=== PATIENT | female | born 1980 | race Caucasian/White ===

== ENCOUNTER 2016-09-24 10:53 | Emergency (ER) | payer OTHER, MEDICAID ==
[~2016-09-24] VITALS: Ht 162.6 cm; Wt 90.9 kg
[~2016-09-24 10:53] MED LIST: AZITHROMYCIN; CLONAZEPAM PO; KLONOPIN 1MG1 MG; KLONOPIN 1MG1 MG PO; LORTAB 10/500 51 TAB; LORTAB 5/500 501 TAB PO; MS CONTIN 115 MG/TAB PO; MS CONTIN 330 MG/TAB; NORCO 325 MG-7.1 TAB PO; PHENERGAN 25 TA25 MG PO; PRILOSEC 20MG20 MG PO; PRILOSEC10 MG PO; SAVELLA50 MG; TYLENOL 500MG500 MG PO; XANAX 0.5MG0.5 MG; ZOFRAN 4MG T4 MG/TAB PO; [UNRECOGNIZED DRUG - OTHER]; [UNRECOGNIZED DRUG - REMARK]; [UNRECOGNIZED DRUG - REMARK]
[2016-09-24 10:55] VITALS: TEMP 98
[2016-09-24] MEDS ORDERED: FENTANYL 25 MCG TD (11:02)
[2016-09-24] MEDS ORDERED: NORCO 325 MG-7.1 TAB PO (11:02)
[2016-09-24] MEDS ORDERED: MOVANTIK25 MG PO (11:09)
[2016-09-24] MEDS ORDERED: FLEXERIL 1010 MG/TAB PO (11:17)
[2016-09-24] MEDS ORDERED: DESYREL 50MG50 MG PO (11:17)
[2016-09-24] MEDS ORDERED: PRINIVIL10 MG PO (11:18)
[2016-09-24 11:30] LABS: BASO # 0.1 (0.0-0.2); BASO % 0.8 % (0.0-2.0); EOS # 0.1 (0.0-0.7); EOS % 1.9 % (0-4.0); GRAN # 4.5 (1.4-6.5); HEMATOCRIT 39.8 % (37.0-47.0); HEMOGLOBIN 13.3 g/dl (12.5-16.0); LYMPH % 27.4 % (20.0-51.0); MEAN CELL VOLUME 91 fl (80.0-100.0); MEAN CORPUSCULAR HEMOGLOBIN 30 pg (27.0-31.0); MEAN CORPUSCULAR HGB CONC 33 g/dl (33.0-37.0); MEAN PLATELET VOLUME 8.7 fl (7.4-10.4); MONO # 0.5 (0.1-0.6); MONO % 6.5 % (1.7-9.3); PLATELET COUNT 276 K/mm3 (130-400); RED BLOOD COUNT 4.38 M/mm3 (4.10-5.30); WHITE BLOOD COUNT 7.2 K/mm3 (4.8-10.8)
[2016-09-24 11:43] LABS: ADJUSTED CALCIUM 9.1 mg/dL (8.4-10.2); ALBUMIN 4.5 gm/dL (3.5-5.0); BILIRUBIN,TOTAL 0.6 mg/dL (0.0-1.0); CALCIUM 9.5 mg/dL (8.4-10.2); CREATININE, serum 0.91 mg/dL (0.52-1.25); POTASSIUM 3.9 mmol/L (3.4-5.0)
[2016-09-24] MEDS ORDERED: ULTRAM 50MG TAB50 MG PO (11:54)
[2016-09-24] MEDS ORDERED: PERCOCET 325 MG1 TA2 PO (11:54)
[2016-09-24 12:49] LABS: PH 6 (5-8); SQUAMOUS EPITHELIAL None Seen /hpf; URINE APPEARANCE Clear; URINE BACTERIA None Seen /hpf; URINE BILIRUBIN Negative (NEGATIVE); URINE BLOOD Negative (NEGATIVE); URINE COLOR Straw; URINE GLUCOSE Negative (NEGATIVE); URINE KETONE Negative (NEGATIVE); URINE RBC 0-2 /hpf; URINE UROBILINOGEN Negative (NEGATIVE); URINE WBC None Seen /hpf
[2016-09-24 13:20] VITALS: BP 120/83; PULSE 104
== END 2016-09-24 13:47 | disposition home or self-care (01) ==
LOC: COL.ER 10:53
PROVIDERS: Emergency Medicine
DX: S09.90XA Unspecified injury of head, initial encounter (principal); M54.2 Cervicalgia; R10.84 Generalized abdominal pain; M54.6 Pain in thoracic spine; M54.5 Low back pain; R10.2 Pelvic and perineal pain; V48.5XXA Car driver injured in noncollision transport accident in traffic accident, initial encounter; Y92.410 Unspecified street and highway as the place of occurrence of the external cause
CPT/HCPCS: J1170; J2405; Q9967

== ENCOUNTER → 2018-04-20 | Outpatient (CLI) | payer MEDICAID ==
[~2018-04-20] MED LIST changes: +DESYREL 50MG50 MG PO; +FENTANYL 25 MCG TD; +FLEXERIL 1010 MG/TAB PO; +MOVANTIK25 MG PO; +PERCOCET 325 MG1 TA2 PO; +PRINIVIL10 MG PO; +ULTRAM 50MG TAB50 MG PO
[2018-04-20 17:55] LABS: URIC ACID 3.9 mg/dL (2.5-6.2)
[2018-04-20 18:03] LABS: C-REACTIVE PROTEIN < 0.5 mg/dL (0.0-0.9)
[2018-04-21 12:24] LABS: RHEUMATOID FACTOR-SCREEN <15 IU/mL (0-29)
== END ==
LOC: COL.LAB 17:14
PROVIDERS: Orthopaedic Surgery Sports Medicine
DX: M25.562 Pain in left knee (principal); M25.561 Pain in right knee

== ENCOUNTER 2018-07-31 16:18 | Emergency (ER) | payer MEDICAID ==
[~2018-07-31] VITALS: Ht 162.6 cm; Wt 68.2 kg
[2018-07-31 16:19] VITALS: TEMP 97.5
[2018-07-31 17:14] LABS: BASO % 0.6 % (0.0-2.0); EOS % 0.3 % (0-4.0); GRAN # 5.3 (1.4-6.5); GRAN % 72.6 % (42.2-75.2); HEMATOCRIT 39.5 % (37.0-47.0); HEMOGLOBIN 13.7 g/dl (12.5-16.0); LYMPH # 1.5 (1.2-3.4); LYMPH % 20.7 % (20.0-51.0); MEAN CELL VOLUME 87 fl (80.0-100.0); MEAN CORPUSCULAR HEMOGLOBIN 30 pg (27.0-31.0); MEAN CORPUSCULAR HGB CONC 35 g/dl (33.0-37.0); MEAN PLATELET VOLUME 9.2 fl (7.4-10.4); MONO # 0.4 (0.1-0.6); MONO % 5.7 % (1.7-9.3); PLATELET COUNT 354 K/mm3 (130-400); RED BLOOD COUNT 4.55 M/mm3 (4.10-5.30); REDCELL DISTRIBUTION WIDTH-CV 12.7 % (11.5-14.5)
[2018-07-31 17:26] LABS: ALANINE AMINOTRANSFERASE 39 U/L (9-52); ALBUMIN 4.4 gm/dL (3.5-5.0); ALKALINE PHOSPHATASE 53 U/L (50-136); ANION GAP 9 mmol/L (7-16); AST,SGOT 58 U/L (15-37); BILIRUBIN,TOTAL 0.5 mg/dL (0.0-1.0); BLOOD UREA NITROGEN 11 mg/dL (7-17); CALCIUM 9.6 mg/dL (8.4-10.2); CARBON DIOXIDE 27 mmol/L (22-30); CHLORIDE 103 mmol/L (98-107); CREATINE KINASE 698 U/L (30-135); CREATININE, serum 0.82 mg/dL (0.52-1.25); GLUCOSE 114 mg/dL (74-106); POTASSIUM 3.4 mmol/L (3.4-5.0); PROTHROMBIN TIME 11.7 SECONDS (9.7-12.8); SODIUM 139 mmol/L (137-145); TOTAL PROTEIN 7.5 gm/dL (6.4-8.2)
[2018-07-31 17:31] LABS: ACETAMINOPHEN < 10 ug/mL (10-30); ALCOHOL(ethanol),MEDICAL < 10 mg/dL; SALICYLATE < 1.0 mg/dL
[2018-07-31 18:30] LABS: TRICYCLIC ANTIDEPRESS URINE NEGATIVE
[2018-08-01 05:08] VITALS: BP 116/68; PULSE 75
== END 2018-08-01 05:13 | disposition home or self-care (01) ==
LOC: COL.ER 16:18
PROVIDERS: Emergency Medicine
DX: R41.82 Altered mental status, unspecified (principal); F17.210 Nicotine dependence, cigarettes, uncomplicated
CPT/HCPCS: J1630; J2060; J7030

== ENCOUNTER → 2020-02-07 | Outpatient (CLI) | payer MEDICAID | LOC: COL.RAD 11:24 | DX: R10.84 Generalized abdominal pain (principal); M43.17 Spondylolisthesis, lumbosacral region; M47.816 Spondylosis without myelopathy or radiculopathy, lumbar region; Z90.49 Acquired absence of other specified parts of digestive tract; Z90.710 Acquired absence of both cervix and uterus | CPT/HCPCS: Q9967 ==

== ENCOUNTER 2020-02-11 04:02 | Emergency (ER) | payer MEDICAID ==
[~2020-02-11] VITALS: Ht 165.1 cm; Wt 74.5 kg
[~2020-02-11 04:02] MED LIST changes: +KLONOPIN 0.5MG0.5 MG PO; -KLONOPIN 1MG1 MG
[2020-02-11 04:24] VITALS: TEMP 98
[2020-02-11 07:53] LABS: BASO # 0.1 (0.0-0.2); BASO % 0.8 % (0.0-2.0); EOS # 0.1 (0.0-0.7); EOS % 1.9 % (0-4.0); GRAN # 4.1 (1.4-6.5); GRAN % 55.8 % (42.2-75.2); HEMOGLOBIN 12.1 g/dl (12.5-16.0); LYMPH # 2.6 (1.2-3.4); LYMPH % 35.1 % (20.0-51.0); MEAN CELL VOLUME 93 fl (80.0-100.0); MEAN CORPUSCULAR HEMOGLOBIN 31 pg (27.0-31.0); MEAN CORPUSCULAR HGB CONC 33 g/dl (33.0-37.0); MEAN PLATELET VOLUME 8.8 fl (7.4-10.4); MONO # 0.5 (0.1-0.6); MONO % 6.3 % (1.7-9.3); PLATELET COUNT 292 K/mm3 (130-400); RED BLOOD COUNT 3.94 M/mm3 (4.10-5.30); REDCELL DISTRIBUTION WIDTH-CV 12.1 % (11.5-14.5)
[2020-02-11 07:56] LABS: HEMATOCRIT 36.5 % (37.0-47.0)
[2020-02-11 08:07] LABS: ALANINE AMINOTRANSFERASE 20 U/L (4-34); ALKALINE PHOSPHATASE 50 U/L (50-136); ANION GAP 8 mmol/L (7-16); AST,SGOT 45 U/L (15-37); BILIRUBIN,TOTAL 0.3 mg/dL (0.0-1.0); BLOOD UREA NITROGEN 15 mg/dL (7-17); CALCIUM 8.9 mg/dL (8.4-10.2); CARBON DIOXIDE 26 mmol/L (22-30); CHLORIDE 106 mmol/L (98-107); CREATINE KINASE 700 U/L (30-135); CREATININE, serum 0.84 (0.52-1.25); GLUCOSE 91 mg/dL (74-106); POTASSIUM 3.9 mmol/L (3.4-5.0); SODIUM 139 mmol/L (137-145); TOTAL PROTEIN 7.1 gm/dL (6.4-8.2)
[2020-02-11 08:12] LABS: C-REACTIVE PROTEIN < 0.5 mg/dL (0.0-0.9)
[2020-02-11 08:13] LABS: COLLECTION METHOD CLEAN CATCH
[2020-02-11 08:26] LABS: MUCOUS Present /lpf; PH 5 (5-8); SQUAMOUS EPITHELIAL 0-2 /hpf; URINE APPEARANCE Cloudy; URINE BACTERIA None Seen /hpf; URINE BILIRUBIN Negative (NEGATIVE); URINE BLOOD Negative (NEGATIVE); URINE CALCIUM OXALATE CRYSTAL Present /hpf; URINE COLOR Yellow; URINE GLUCOSE Negative (NEGATIVE); URINE KETONE Negative (NEGATIVE); URINE LEUKOCYTE ESTERASE Negative (NEGATIVE); URINE NITRATE Negative (NEGATIVE); URINE PROTEIN(semi-quant) Negative (NEGATIVE); URINE RBC None Seen /hpf; URINE UROBILINOGEN Negative (NEGATIVE)
[2020-02-11] MEDS ORDERED: LIORESAL 1010 MG/TAB PO (09:07)
[2020-02-11] MEDS ORDERED: NAPROXEN 3375 MG/TAB PO (09:07)
[2020-02-11 09:20] VITALS: BP 117/83; PULSE 72
== END 2020-02-11 09:20 | disposition home or self-care (01) ==
LOC: COL.ER 04:02
PROVIDERS: Emergency Medicine
DX: M62.838 Other muscle spasm (principal)
CPT/HCPCS: J1885; J2550

== ENCOUNTER 2020-02-26 08:44 | Emergency (ER) | payer MEDICAID ==
[~2020-02-26] VITALS: Ht 165.1 cm; Wt 81.8 kg
[~2020-02-26 08:44] MED LIST changes: +LIORESAL 1010 MG/TAB PO; +NAPROXEN 3375 MG/TAB PO
[2020-02-26 08:59] VITALS: BP 134/83; TEMP 99.5
[2020-02-26 09:47] LABS: BASO # 0.1 (0.0-0.2); BASO % 0.7 % (0.0-2.0); EOS # 0.2 (0.0-0.7); EOS % 2.4 % (0-4.0); GRAN # 4.2 (1.4-6.5); GRAN % 58.4 % (42.2-75.2); HEMATOCRIT 37.6 % (37.0-47.0); HEMOGLOBIN 12.7 g/dl (12.5-16.0); LYMPH # 2.2 (1.2-3.4); LYMPH % 31.1 % (20.0-51.0); MEAN CELL VOLUME 93 fl (80.0-100.0); MEAN CORPUSCULAR HEMOGLOBIN 31 pg (27.0-31.0); MEAN CORPUSCULAR HGB CONC 34 g/dl (33.0-37.0); MEAN PLATELET VOLUME 8.9 fl (7.4-10.4); MONO # 0.5 (0.1-0.6); MONO % 7.3 % (1.7-9.3); PLATELET COUNT 305 K/mm3 (130-400); RED BLOOD COUNT 4.04 M/mm3 (4.10-5.30); REDCELL DISTRIBUTION WIDTH-CV 12.6 % (11.5-14.5)
[2020-02-26 09:59] LABS: ALBUMIN 4.1 gm/dL (3.5-5.0); BILIRUBIN,TOTAL 0.5 mg/dL (0.0-1.0); CALCIUM 8.9 mg/dL (8.4-10.2); CREATININE, serum 0.87 (0.52-1.25); POTASSIUM 3.5 mmol/L (3.4-5.0); TOTAL PROTEIN 7.3 gm/dL (6.4-8.2)
[2020-02-26] MEDS ORDERED: PREDNISONE20 MG PO (10:59)
[2020-02-26 11:13] VITALS: PULSE 95
== END 2020-02-26 11:14 | disposition home or self-care (01) ==
LOC: COL.ER 08:44
PROVIDERS: Nurse Practitioner Primary Care
DX: M25.511 Pain in right shoulder (principal); M25.50 Pain in unspecified joint; F41.9 Anxiety disorder, unspecified; M79.7 Fibromyalgia

== ENCOUNTER 2020-04-13 03:05 | Emergency (ER) | payer MEDICAID ==
[~2020-04-13] VITALS: Ht 162.6 cm; Wt 79.5 kg
[~2020-04-13 03:05] MED LIST changes: +PREDNISONE20 MG PO
[2020-04-13] MEDS ORDERED: NORFLEX 10100 MG/TAB PO (04:21)
[2020-04-13] MEDS ORDERED: NAPROXEN 3375 MG/TAB PO (04:34)
[2020-04-13 04:35] VITALS: BP 148/64; PULSE 65; TEMP 98.7
== END 2020-04-13 04:43 | disposition home or self-care (01) ==
LOC: COL.ER 03:05
DX: M54.9 Dorsalgia, unspecified (principal); G89.29 Other chronic pain; M25.511 Pain in right shoulder; M25.561 Pain in right knee; M25.552 Pain in left hip; M25.551 Pain in right hip; F41.9 Anxiety disorder, unspecified; Z87.891 Personal history of nicotine dependence; Z90.710 Acquired absence of both cervix and uterus; Z90.49 Acquired absence of other specified parts of digestive tract; Z79.52 Long term (current) use of systemic steroids
CPT/HCPCS: J1885; J2360

== ENCOUNTER 2020-04-20 11:01 | Emergency (ER) | payer MEDICAID ==
[~2020-04-20] VITALS: Ht 162.6 cm; Wt 79.5 kg
[~2020-04-20 11:01] MED LIST changes: +NORFLEX 10100 MG/TAB PO
[2020-04-20 11:13] VITALS: BP 139/83; TEMP 98.4
[2020-04-20] MEDS ORDERED: VALIUM 10MG10 MG/TAB PO (12:25)
[2020-04-20] MEDS ORDERED: MEDROL 4MG DOSPA4 MG PO (12:27)
[2020-04-20 12:34] VITALS: PULSE 87
== END 2020-04-20 12:33 | disposition home or self-care (01) ==
LOC: COL.ER 11:01
DX: M35.3 Polymyalgia rheumatica (principal); G89.29 Other chronic pain; M25.50 Pain in unspecified joint; F17.210 Nicotine dependence, cigarettes, uncomplicated; Z90.710 Acquired absence of both cervix and uterus; Z90.49 Acquired absence of other specified parts of digestive tract; Z79.52 Long term (current) use of systemic steroids
CPT/HCPCS: J1885; J2360

== ENCOUNTER 2020-05-19 19:14 | Emergency (ER) | payer MEDICAID ==
[~2020-05-19] VITALS: Ht 162.6 cm; Wt 81.8 kg
[~2020-05-19 19:14] MED LIST changes: +MEDROL 4MG DOSPA4 MG PO; +VALIUM 10MG10 MG/TAB PO
[2020-05-19] MEDS ORDERED: ULTRAM 50MG TAB50 MG PO ×2 (19:41→22:31)
[2020-05-19 20:34] LABS: COLLECTION METHOD CLEAN CATCH
[2020-05-19 20:39] LABS: BASO % 0.5 % (0.0-2.0); EOS % 0.3 % (0-4.0); GRAN # 5.7 (1.4-6.5); GRAN % 72.3 % (42.2-75.2); HEMATOCRIT 39.3 % (37.0-47.0); HEMOGLOBIN 13.3 g/dl (12.5-16.0); LYMPH # 1.6 (1.2-3.4); LYMPH % 20.1 % (20.0-51.0); MEAN CELL VOLUME 91 fl (80.0-100.0); MEAN CORPUSCULAR HEMOGLOBIN 31 pg (27.0-31.0); MEAN CORPUSCULAR HGB CONC 34 g/dl (33.0-37.0); MEAN PLATELET VOLUME 8.9 fl (7.4-10.4); MONO # 0.5 (0.1-0.6); MONO % 6.5 % (1.7-9.3); PLATELET COUNT 304 K/mm3 (130-400); RED BLOOD COUNT 4.34 M/mm3 (4.10-5.30); REDCELL DISTRIBUTION WIDTH-CV 12.2 % (11.5-14.5)
[2020-05-19 20:44] LABS: MUCOUS Present /lpf; PH 5 (5-8); URINE APPEARANCE Hazy; URINE BACTERIA None Seen /hpf; URINE BILIRUBIN Negative (NEGATIVE); URINE BLOOD Negative (NEGATIVE); URINE COLOR Yellow; URINE GLUCOSE Negative (NEGATIVE); URINE KETONE 1+ (NEGATIVE); URINE LEUKOCYTE ESTERASE Negative (NEGATIVE); URINE NITRATE Negative (NEGATIVE); URINE PROTEIN(semi-quant) 1+ (NEGATIVE); URINE UROBILINOGEN Negative (NEGATIVE)
[2020-05-19 20:53] LABS: ALBUMIN 4.7 gm/dL (3.5-5.0); BILIRUBIN,TOTAL 0.5 mg/dL (0.0-1.0); CALCIUM 9.1 mg/dL (8.4-10.2); CREATININE, serum 0.9 (0.52-1.25); POTASSIUM 3.2 mmol/L (3.4-5.0); TOTAL PROTEIN 7.9 gm/dL (6.4-8.2)
[2020-05-19 22:56] VITALS: BP 124/89; PULSE 91; TEMP 98.2
== END 2020-05-19 22:56 | disposition home or self-care (01) ==
LOC: COL.ER 19:14
PROVIDERS: Physician Assistant
DX: M54.5 Low back pain (principal); R51 Headache; G89.29 Other chronic pain; M79.7 Fibromyalgia; Z90.710 Acquired absence of both cervix and uterus; Z88.8 Allergy status to other drugs, medicaments and biological substances
CPT/HCPCS: J1200; J1885; J2765; J7030

== ENCOUNTER 2020-05-27 09:57 | Emergency (ER) | payer MEDICAID ==
[~2020-05-27] VITALS: Ht 162.6 cm; Wt 80.9 kg
[2020-05-27 10:05] VITALS: TEMP 98.5
[2020-05-27 10:45] LABS: COLLECTION METHOD CLEAN CATCH
[2020-05-27 10:50] LABS: PH 5 (5-8); SQUAMOUS EPITHELIAL 0-2 /hpf; URINE APPEARANCE Clear; URINE BACTERIA None Seen /hpf; URINE BILIRUBIN Negative (NEGATIVE); URINE BLOOD Negative (NEGATIVE); URINE COLOR Colorless; URINE GLUCOSE Negative (NEGATIVE); URINE KETONE Negative (NEGATIVE); URINE LEUKOCYTE ESTERASE Negative (NEGATIVE); URINE NITRATE Negative (NEGATIVE); URINE PROTEIN(semi-quant) Negative (NEGATIVE); URINE RBC 0-2 /hpf; URINE UROBILINOGEN Negative (NEGATIVE)
[2020-05-27 11:03] LABS: BASO % 0.7 % (0.0-2.0); EOS # 0.3 (0.0-0.7); EOS % 6.3 % (0-4.0); GRAN # 2.3 (1.4-6.5); GRAN % 54.7 % (42.2-75.2); HEMATOCRIT 41.9 % (37.0-47.0); LYMPH # 1.2 (1.2-3.4); LYMPH % 29.4 % (20.0-51.0); MEAN CELL VOLUME 92 fl (80.0-100.0); MEAN CORPUSCULAR HEMOGLOBIN 31 pg (27.0-31.0); MEAN CORPUSCULAR HGB CONC 33 g/dl (33.0-37.0); MEAN PLATELET VOLUME 8.8 fl (7.4-10.4); MONO # 0.4 (0.1-0.6); MONO % 8.7 % (1.7-9.3); PLATELET COUNT 328 K/mm3 (130-400); RED BLOOD COUNT 4.54 M/mm3 (4.10-5.30); REDCELL DISTRIBUTION WIDTH-CV 12.2 % (11.5-14.5)
[2020-05-27 11:17] LABS: ALANINE AMINOTRANSFERASE 16 U/L (4-34); ALBUMIN 4.4 gm/dL (3.5-5.0); ALKALINE PHOSPHATASE 49 U/L (50-136); ANION GAP 6 mmol/L (7-16); AST,SGOT 26 U/L (15-37); BILIRUBIN,TOTAL 0.3 mg/dL (0.0-1.0); BLOOD UREA NITROGEN 12 mg/dL (7-17); CALCIUM 9.1 mg/dL (8.4-10.2); CARBON DIOXIDE 27 mmol/L (22-30); CHLORIDE 104 mmol/L (98-107); CREATININE, serum 0.84 (0.52-1.25); GLUCOSE 89 mg/dL (74-106); POTASSIUM 4.2 mmol/L (3.4-5.0); SODIUM 138 mmol/L (137-145); TOTAL PROTEIN 7.4 gm/dL (6.4-8.2)
[2020-05-27 11:18] LABS: C-REACTIVE PROTEIN < 0.5 mg/dL (0.0-0.9)
[2020-05-27 11:33] LABS: ERYTHROCYTE SEDIMENTATION RATE 10 mm/hr (0-20)
[2020-05-27 12:28] VITALS: BP 122/78; PULSE 79
== END 2020-05-27 12:10 | disposition home or self-care (01) ==
LOC: COL.ER 09:57
PROVIDERS: Physician Assistant
DX: R10.9 Unspecified abdominal pain (principal); R11.0 Nausea; M25.531 Pain in right wrist; Z90.49 Acquired absence of other specified parts of digestive tract; Z88.8 Allergy status to other drugs, medicaments and biological substances; Z79.891 Long term (current) use of opiate analgesic
CPT/HCPCS: J7030

== ENCOUNTER 2020-06-01 12:53 | Emergency (ER) | payer MEDICAID ==
[~2020-06-01] VITALS: Ht 162.6 cm; Wt 75.0 kg
[2020-06-01 13:02] VITALS: TEMP 98.1
[2020-06-01] MEDS ORDERED: MEDROL 4MG DOSPA4 MG PO (15:02)
[2020-06-01 15:07] VITALS: BP 128/70; PULSE 76
== END 2020-06-01 15:15 | disposition home or self-care (01) ==
LOC: COL.ER 12:53
DX: M79.601 Pain in right arm (principal); G89.29 Other chronic pain; F17.210 Nicotine dependence, cigarettes, uncomplicated; Z88.8 Allergy status to other drugs, medicaments and biological substances
CPT/HCPCS: J1885; J2360

== ENCOUNTER 2020-06-10 12:22 | Emergency (ER) | payer MEDICAID ==
[~2020-06-10] VITALS: Ht 162.6 cm; Wt 80.9 kg
[2020-06-10 12:28] VITALS: BP 145/92; TEMP 98.3
[2020-06-10] MEDS ORDERED: NORCO 325 MG-51 TAB PO (12:32)
[2020-06-10 13:59] VITALS: PULSE 78
== END 2020-06-10 13:59 | disposition home or self-care (01) ==
LOC: COL.ER 12:22
DX: S16.1XXA Strain of muscle, fascia and tendon at neck level, initial encounter (principal); G89.29 Other chronic pain; F41.9 Anxiety disorder, unspecified; F17.210 Nicotine dependence, cigarettes, uncomplicated; Z79.891 Long term (current) use of opiate analgesic
CPT/HCPCS: J1885

== ENCOUNTER 2020-06-19 11:59 | Emergency (ER) | payer MEDICAID ==
[~2020-06-19] VITALS: Ht 162.6 cm; Wt 78.2 kg
[~2020-06-19 11:59] MED LIST changes: +NORCO 325 MG-51 TAB PO
[2020-06-20 02:22] LABS: ALANINE AMINOTRANSFERASE 18 U/L (4-34); ALBUMIN 4.6 gm/dL (3.5-5.0); ANION GAP 10 mmol/L (7-16); AST,SGOT 33 U/L (15-37); BILIRUBIN,TOTAL 0.6 mg/dL (0.0-1.0); BLOOD UREA NITROGEN 10 mg/dL (7-17); CALCIUM 9.3 mg/dL (8.4-10.2); CARBON DIOXIDE 29 mmol/L (22-30); CHLORIDE 102 mmol/L (98-107); COLLECTION METHOD CLEAN CATCH; CREATININE, serum 0.78 (0.52-1.25); GLUCOSE 101 mg/dL (74-106); MAGNESIUM 2.1 mg/dL (1.6-2.3); POTASSIUM 3.6 mmol/L (3.4-5.0); SODIUM 140 mmol/L (137-145); TOTAL PROTEIN 7.9 gm/dL (6.4-8.2)
[2020-06-20 02:23] LABS: ALKALINE PHOSPHATASE 46 U/L (50-136); C-REACTIVE PROTEIN < 0.5 mg/dL (0.0-0.9); CREATINE KINASE 271 U/L (30-135); LIPASE 135 U/L (23-300)
[2020-06-20 02:26] LABS: BASO # 0.1 (0.0-0.2); BASO % 0.8 % (0.0-2.0); EOS # 0.1 (0.0-0.7); GRAN # 3.7 (1.4-6.5); GRAN % 58.8 % (42.2-75.2); HEMATOCRIT 40.2 % (37.0-47.0); HEMOGLOBIN 13.7 g/dl (12.5-16.0); LYMPH % 31.8 % (20.0-51.0); MEAN CELL VOLUME 92 fl (80.0-100.0); MEAN CORPUSCULAR HEMOGLOBIN 31 pg (27.0-31.0); MEAN CORPUSCULAR HGB CONC 34 g/dl (33.0-37.0); MEAN PLATELET VOLUME 8.8 fl (7.4-10.4); MONO # 0.5 (0.1-0.6); MONO % 7.4 % (1.7-9.3); PLATELET COUNT 352 K/mm3 (130-400); RED BLOOD COUNT 4.38 M/mm3 (4.10-5.30); REDCELL DISTRIBUTION WIDTH-CV 11.9 % (11.5-14.5)
[2020-06-20 02:27] LABS: ERYTHROCYTE SEDIMENTATION RATE 7 mm/hr (0-20)
[2020-06-20 02:29] LABS: MUCOUS Present /lpf; PH 6 (5-8); SQUAMOUS EPITHELIAL 0-2 /hpf; URINE APPEARANCE Clear; URINE BACTERIA None Seen /hpf; URINE BILIRUBIN Negative (NEGATIVE); URINE BLOOD Negative (NEGATIVE); URINE COLOR Yellow; URINE GLUCOSE Negative (NEGATIVE); URINE KETONE Negative (NEGATIVE); URINE LEUKOCYTE ESTERASE Negative (NEGATIVE); URINE NITRATE Negative (NEGATIVE); URINE PROTEIN(semi-quant) Negative (NEGATIVE); URINE RBC 0-2 /hpf
[2020-06-20 03:20] VITALS: BP 134/74; PULSE 78; TEMP 98
== END 2020-06-20 03:28 | disposition home or self-care (01) ==
LOC: COL.ER 11:59
PROVIDERS: Emergency Medicine
DX: G43.909 Migraine, unspecified, not intractable, without status migrainosus (principal); R10.9 Unspecified abdominal pain; G89.29 Other chronic pain; Z90.710 Acquired absence of both cervix and uterus; Z88.8 Allergy status to other drugs, medicaments and biological substances
CPT/HCPCS: J1200; J1790; J1885; J7030

== ENCOUNTER 2020-08-01 23:09 | Emergency (ER) | payer MEDICAID ==
[~2020-08-01] VITALS: Ht 162.6 cm; Wt 77.3 kg
[2020-08-01 23:15] VITALS: TEMP 98.4
[2020-08-01 23:51] LABS: BASO # 0.1 (0.0-0.2); BASO % 0.6 % (0.0-2.0); EOS # 0.1 (0.0-0.7); EOS % 1.7 % (0-4.0); GRAN # 5.1 (1.4-6.5); GRAN % 65.2 % (42.2-75.2); HEMATOCRIT 40.2 % (37.0-47.0); HEMOGLOBIN 13.5 g/dl (12.5-16.0); LYMPH # 2.1 (1.2-3.4); LYMPH % 26.4 % (20.0-51.0); MEAN CELL VOLUME 92 fl (80.0-100.0); MEAN CORPUSCULAR HEMOGLOBIN 31 pg (27.0-31.0); MEAN CORPUSCULAR HGB CONC 34 g/dl (33.0-37.0); MEAN PLATELET VOLUME 8.5 fl (7.4-10.4); MONO # 0.5 (0.1-0.6); MONO % 5.8 % (1.7-9.3); PLATELET COUNT 356 K/mm3 (130-400); RED BLOOD COUNT 4.38 M/mm3 (4.10-5.30); REDCELL DISTRIBUTION WIDTH-CV 12.2 % (11.5-14.5)
[2020-08-02 00:03] LABS: ALANINE AMINOTRANSFERASE 17 U/L (4-34); ALBUMIN 4.4 gm/dL (3.5-5.0); ALKALINE PHOSPHATASE 43 U/L (50-136); ANION GAP 8 mmol/L (7-16); AST,SGOT 28 U/L (15-37); BILIRUBIN,TOTAL 0.3 mg/dL (0.0-1.0); BLOOD UREA NITROGEN 11 mg/dL (7-17); CALCIUM 9.4 mg/dL (8.4-10.2); CARBON DIOXIDE 25 mmol/L (22-30); CHLORIDE 105 mmol/L (98-107); GLUCOSE 106 mg/dL (74-106); LIPASE 260 U/L (23-300); MAGNESIUM 2.1 mg/dL (1.6-2.3); POTASSIUM 3.7 mmol/L (3.4-5.0); SODIUM 139 mmol/L (137-145); TOTAL PROTEIN 7.2 gm/dL (6.4-8.2)
[2020-08-02 00:13] LABS: TROPONIN-I < 0.012 ng/mL (0.000-0.035)
[2020-08-02 00:30] VITALS: BP 123/91; PULSE 77
[2020-08-28] MEDS ORDERED: CIPRO 500MG TA500 MG PO (15:22)
[2020-08-28] MEDS ORDERED: FLAGYL500 MG PO (15:22)
[2020-08-28] MEDS ORDERED: BENTYL 10MG10 MG/CAP PO (15:43)
[2020-08-28] MEDS ORDERED: NORCO 325 MG-51 TAB PO ×2 (15:44→15:45)
== END 2020-08-02 00:30 | disposition home or self-care (01) ==
LOC: COL.ER 23:09
PROVIDERS: Family Medicine
DX: R10.13 Epigastric pain (principal); F41.9 Anxiety disorder, unspecified; Z88.8 Allergy status to other drugs, medicaments and biological substances

== ENCOUNTER 2020-08-31 00:51 | Emergency (ER) | payer MEDICAID ==
[~2020-08-31] VITALS: Ht 162.6 cm; Wt 75.5 kg
[~2020-08-31 00:51] MED LIST changes: +BENTYL 10MG10 MG/CAP PO; +CIPRO 500MG TA500 MG PO; +FLAGYL500 MG PO
[2020-08-31 00:52] VITALS: TEMP 98.3
[2020-08-31 01:11] LABS: BASO % 0.6 % (0.0-2.0); EOS # 0.2 (0.0-0.7); EOS % 3.1 % (0-4.0); GRAN # 3.8 (1.4-6.5); GRAN % 53.2 % (42.2-75.2); HEMATOCRIT 37.2 % (37.0-47.0); HEMOGLOBIN 12.1 g/dl (12.5-16.0); LYMPH # 2.5 (1.2-3.4); LYMPH % 35.3 % (20.0-51.0); MEAN CELL VOLUME 94 fl (80.0-100.0); MEAN CORPUSCULAR HEMOGLOBIN 31 pg (27.0-31.0); MEAN CORPUSCULAR HGB CONC 33 g/dl (33.0-37.0); MEAN PLATELET VOLUME 8.9 fl (7.4-10.4); MONO # 0.5 (0.1-0.6); MONO % 7.4 % (1.7-9.3); PLATELET COUNT 335 K/mm3 (130-400); RED BLOOD COUNT 3.95 M/mm3 (4.10-5.30); REDCELL DISTRIBUTION WIDTH-CV 12.3 % (11.5-14.5)
[2020-08-31 01:26] LABS: ALBUMIN 3.8 gm/dL (3.5-5.0); BILIRUBIN,TOTAL 0.3 mg/dL (0.0-1.0); CALCIUM 9.2 mg/dL (8.4-10.2); CREATININE, serum 0.77 (0.52-1.25); TOTAL PROTEIN 6.6 gm/dL (6.4-8.2)
[2020-08-31 02:20] VITALS: BP 113/78; PULSE 60
[2020-09-01] MEDS ORDERED: PROTONIX 40MG T40 MG PO (21:13)
[2020-09-01] MEDS ORDERED: ZOFRAN ODT4 MG PO (21:21)
== END 2020-08-31 02:20 | disposition home or self-care (01) ==
LOC: COL.ER 00:51
PROVIDERS: Family Medicine
DX: K52.9 Noninfective gastroenteritis and colitis, unspecified (principal); G89.29 Other chronic pain; Z88.8 Allergy status to other drugs, medicaments and biological substances; Z90.710 Acquired absence of both cervix and uterus
CPT/HCPCS: J1885; J2060; J2765; J7030

== ENCOUNTER 2020-09-01 20:11 | Emergency (ER) | payer MEDICAID ==
[~2020-09-01] VITALS: Ht 162.6 cm; Wt 72.7 kg
[2020-09-01 20:13] VITALS: TEMP 98.1
[2020-09-01] MEDS ORDERED: PROTONIX 40MG T40 MG PO (21:13)
[2020-09-01] MEDS ORDERED: ZOFRAN ODT4 MG PO (21:21)
[2020-09-01 21:26] VITALS: BP 121/91; PULSE 64
== END 2020-09-01 21:29 | disposition home or self-care (01) ==
LOC: COL.ER 20:11
DX: K52.9 Noninfective gastroenteritis and colitis, unspecified (principal); F41.9 Anxiety disorder, unspecified; Z87.891 Personal history of nicotine dependence; Z90.710 Acquired absence of both cervix and uterus; Z88.8 Allergy status to other drugs, medicaments and biological substances
CPT/HCPCS: C9113; J2060; J7030

== ENCOUNTER 2020-10-13 14:53 | Emergency (ER) | payer MEDICAID ==
[~2020-10-13] VITALS: Ht 162.6 cm; Wt 72.7 kg
[~2020-10-13 14:53] MED LIST changes: +PROTONIX 40MG T40 MG PO; +ZOFRAN ODT4 MG PO
[2020-10-13 14:54] VITALS: TEMP 98.1
[2020-10-13 15:41] VITALS: BP 126/88; PULSE 87
== END 2020-10-13 15:44 | disposition home or self-care (01) ==
LOC: COL.ER 14:53
DX: F41.9 Anxiety disorder, unspecified (principal); Z87.898 Personal history of other specified conditions; Z90.710 Acquired absence of both cervix and uterus; Z88.8 Allergy status to other drugs, medicaments and biological substances

== ENCOUNTER 2020-11-19 18:34 | Emergency (ER) | payer MEDICAID ==
[~2020-11-19] VITALS: Ht 162.6 cm; Wt 72.7 kg
[2020-11-19 18:38] VITALS: TEMP 98.3
[2020-11-19 19:35] LABS: BASO # 0.1 (0.0-0.2); BASO % 0.6 % (0.0-2.0); EOS # 0.2 (0.0-0.7); EOS % 3.1 % (0-4.0); GRAN # 5.5 (1.4-6.5); GRAN % 70.7 % (42.2-75.2); HEMATOCRIT 40.9 % (37.0-47.0); LYMPH # 1.6 (1.2-3.4); MEAN CELL VOLUME 91 fl (80.0-100.0); MEAN CORPUSCULAR HEMOGLOBIN 31 pg (27.0-31.0); MEAN CORPUSCULAR HGB CONC 34 g/dl (33.0-37.0); MEAN PLATELET VOLUME 8.7 fl (7.4-10.4); MONO # 0.4 (0.1-0.6); MONO % 4.5 % (1.7-9.3); PLATELET COUNT 374 K/mm3 (130-400); RED BLOOD COUNT 4.49 M/mm3 (4.10-5.30); REDCELL DISTRIBUTION WIDTH-CV 12.2 % (11.5-14.5)
[2020-11-19 19:43] LABS: ALANINE AMINOTRANSFERASE 14 U/L (4-34); ALBUMIN 4.6 gm/dL (3.5-5.0); ALKALINE PHOSPHATASE 46 U/L (50-136); ANION GAP 11 mmol/L (7-16); AST,SGOT 26 U/L (15-37); BILIRUBIN,TOTAL 0.4 mg/dL (0.0-1.0); BLOOD UREA NITROGEN 16 mg/dL (7-17); CALCIUM 9.8 mg/dL (8.4-10.2); CARBON DIOXIDE 26 mmol/L (22-30); CHLORIDE 103 mmol/L (98-107); CREATININE, serum 0.78 (0.52-1.25); GLUCOSE 88 mg/dL (74-106); POTASSIUM 4.1 mmol/L (3.4-5.0); SODIUM 140 mmol/L (137-145); TOTAL PROTEIN 7.7 gm/dL (6.4-8.2)
[2020-11-19 19:48] LABS: C-REACTIVE PROTEIN < 0.5 mg/dL (0.0-0.9)
[2020-11-19 19:54] LABS: TROPONIN-I < 0.012 ng/mL (0.000-0.035)
[2020-11-19 20:31] LABS: COLLECTION METHOD CLEAN CATCH
[2020-11-19 20:38] LABS: PH 6 (5-8); SQUAMOUS EPITHELIAL None Seen /hpf; URINE APPEARANCE Clear; URINE BACTERIA None Seen /hpf; URINE BILIRUBIN Negative (NEGATIVE); URINE BLOOD Negative (NEGATIVE); URINE COLOR Straw; URINE GLUCOSE Negative (NEGATIVE); URINE KETONE Negative (NEGATIVE); URINE LEUKOCYTE ESTERASE Negative (NEGATIVE); URINE NITRATE Negative (NEGATIVE); URINE PROTEIN(semi-quant) Negative (NEGATIVE); URINE RBC 0-2 /hpf; URINE UROBILINOGEN Negative (NEGATIVE)
[2020-11-19] MEDS ORDERED: PRIL40 PO (20:38)
[2020-11-19] MEDS ORDERED: ZOFRAN 4MG T4 MG/TAB PO (20:38)
[2020-11-19 20:56] VITALS: BP 126/71; PULSE 82
[2021-01-09] MEDS ORDERED: ULTRAM 50MG TAB50 MG PO (10:14)
[2021-01-09] MEDS ORDERED: PROTONIX 40MG T40 MG PO (10:14)
[2021-01-09] MEDS ORDERED: ATIVAN 0.50.5 MG/TAB PO (10:14)
== END 2020-11-19 20:56 | disposition home or self-care (01) ==
LOC: COL.ER 18:34
PROVIDERS: Nurse Practitioner Primary Care
DX: G89.29 Other chronic pain (principal); R10.13 Epigastric pain; F41.9 Anxiety disorder, unspecified; R11.2 Nausea with vomiting, unspecified; F17.210 Nicotine dependence, cigarettes, uncomplicated; Z87.442 Personal history of urinary calculi; Z88.8 Allergy status to other drugs, medicaments and biological substances; Z90.710 Acquired absence of both cervix and uterus; Z95.9 Presence of cardiac and vascular implant and graft, unspecified
CPT/HCPCS: J2405

== ENCOUNTER 2021-01-08 19:12 | Emergency (ER) | payer MEDICAID ==
[~2021-01-08] VITALS: Ht 170.2 cm; Wt 74.5 kg
[~2021-01-08 19:12] MED LIST changes: +PRIL40 PO
[2021-01-08] MEDS ORDERED: KLONOPIN 0.5MG0.5 MG PO (20:06)
[2021-01-08 20:07] LABS: BASO # 0.1 (0.0-0.2); BASO % 0.8 % (0.0-2.0); EOS # 0.1 (0.0-0.7); EOS % 2.2 % (0-4.0); GRAN # 3.5 (1.4-6.5); GRAN % 54.1 % (42.2-75.2); HEMATOCRIT 39.3 % (37.0-47.0); LYMPH # 2.3 (1.2-3.4); LYMPH % 35.3 % (20.0-51.0); MEAN CELL VOLUME 94 fl (80.0-100.0); MEAN CORPUSCULAR HEMOGLOBIN 31 pg (27.0-31.0); MEAN CORPUSCULAR HGB CONC 33 g/dl (33.0-37.0); MEAN PLATELET VOLUME 8.9 fl (7.4-10.4); MONO # 0.5 (0.1-0.6); MONO % 7.4 % (1.7-9.3); PLATELET COUNT 321 K/mm3 (130-400)
[2021-01-08 20:23] LABS: ALANINE AMINOTRANSFERASE 15 U/L (4-34); ALBUMIN 4.4 gm/dL (3.5-5.0); ALKALINE PHOSPHATASE 42 U/L (50-136); ANION GAP 9 mmol/L (7-16); AST,SGOT 32 U/L (15-37); BILIRUBIN,TOTAL 0.3 mg/dL (0.0-1.0); BLOOD UREA NITROGEN 13 mg/dL (7-17); CALCIUM 9.1 mg/dL (8.4-10.2); CARBON DIOXIDE 24 mmol/L (22-30); CHLORIDE 104 mmol/L (98-107); CREATININE, serum 1.06 (0.52-1.25); GLUCOSE 80 mg/dL (74-106); LIPASE 160 U/L (23-300); POTASSIUM 3.7 mmol/L (3.4-5.0); SODIUM 137 mmol/L (137-145); TOTAL PROTEIN 7.8 gm/dL (6.4-8.2)
[2021-01-08 20:26] LABS: C-REACTIVE PROTEIN < 0.5 mg/dL (0.0-0.9)
[2021-01-08 20:51] LABS: THYROID STIMULATING HORMONE 0.891 uIU/mL (0.465-4.680)
[2021-01-08] MEDS ORDERED: PROTONIX 40MG T40 MG PO (21:17)
[2021-01-08] MEDS ORDERED: ULTRAM 50MG TAB50 MG PO (21:17)
[2021-01-08] MEDS ORDERED: ATIVAN 0.50.5 MG/TAB PO (21:17)
[2021-01-08 21:31] VITALS: BP 132/78; PULSE 74; TEMP 97.9
[2021-01-09] MEDS ORDERED: PROTONIX 40MG T40 MG PO (10:14)
[2021-01-09] MEDS ORDERED: ULTRAM 50MG TAB50 MG PO (10:14)
[2021-01-09] MEDS ORDERED: ATIVAN 0.50.5 MG/TAB PO (10:14)
== END 2021-01-08 21:31 | disposition home or self-care (01) ==
LOC: COL.ER 19:12
PROVIDERS: Emergency Medicine
DX: M62.838 Other muscle spasm (principal); F41.9 Anxiety disorder, unspecified; F17.210 Nicotine dependence, cigarettes, uncomplicated; Z90.710 Acquired absence of both cervix and uterus; Z32.02 Encounter for pregnancy test, result negative; Z88.8 Allergy status to other drugs, medicaments and biological substances; Z79.899 Other long term (current) drug therapy
CPT/HCPCS: J2060; J7030

== ENCOUNTER 2021-01-18 15:30 | Emergency (ER) | payer MEDICAID ==
[~2021-01-18] VITALS: Ht 162.6 cm; Wt 73.6 kg
[~2021-01-18 15:30] MED LIST changes: +ATIVAN 0.50.5 MG/TAB PO
[2021-01-18 15:33] VITALS: TEMP 98.5
[2021-01-18 16:02] LABS: COLLECTION METHOD CLEAN CATCH
[2021-01-18 16:05] LABS: BASO # 0.1 (0.0-0.2); BASO % 0.8 % (0.0-2.0); EOS # 0.2 (0.0-0.7); EOS % 3.5 % (0-4.0); GRAN # 3.6 (1.4-6.5); GRAN % 57.2 % (42.2-75.2); HEMATOCRIT 42.3 % (37.0-47.0); LYMPH % 30.9 % (20.0-51.0); MEAN CELL VOLUME 93 fl (80.0-100.0); MEAN CORPUSCULAR HEMOGLOBIN 31 pg (27.0-31.0); MEAN CORPUSCULAR HGB CONC 33 g/dl (33.0-37.0); MEAN PLATELET VOLUME 8.9 fl (7.4-10.4); MONO # 0.5 (0.1-0.6); MONO % 7.4 % (1.7-9.3); PLATELET COUNT 338 K/mm3 (130-400); RED BLOOD COUNT 4.53 M/mm3 (4.10-5.30); REDCELL DISTRIBUTION WIDTH-CV 12.1 % (11.5-14.5)
[2021-01-18 16:13] LABS: MUCOUS Present /lpf; PH 6 (5-8); SQUAMOUS EPITHELIAL 0-2 /hpf; URINE APPEARANCE Hazy; URINE BACTERIA Rare /hpf; URINE BILIRUBIN Negative (NEGATIVE); URINE BLOOD Negative (NEGATIVE); URINE COLOR Yellow; URINE GLUCOSE Negative (NEGATIVE); URINE KETONE 1+ (NEGATIVE); URINE LEUKOCYTE ESTERASE Negative (NEGATIVE); URINE NITRATE Negative (NEGATIVE); URINE PROTEIN(semi-quant) Negative (NEGATIVE); URINE RBC 0-2 /hpf; URINE UROBILINOGEN Negative (NEGATIVE)
[2021-01-18 16:15] LABS: ACETAMINOPHEN < 10 ug/mL (10-30); ALANINE AMINOTRANSFERASE 31 U/L (4-34); ALBUMIN 4.7 gm/dL (3.5-5.0); ALCOHOL(ethanol),MEDICAL < 10 mg/dL; ALKALINE PHOSPHATASE 48 U/L (50-136); ANION GAP 7 mmol/L (7-16); AST,SGOT 48 U/L (15-37); BILIRUBIN,TOTAL 0.1 mg/dL (0.0-1.0); BLOOD UREA NITROGEN 14 mg/dL (7-17); CALCIUM 9.7 mg/dL (8.4-10.2); CARBON DIOXIDE 33 mmol/L (22-30); CHLORIDE 100 mmol/L (98-107); CREATININE, serum 0.97 (0.52-1.25); GLUCOSE 84 mg/dL (74-106); SALICYLATE < 1.0 mg/dL; SODIUM 140 mmol/L (137-145); TOTAL PROTEIN 8.4 gm/dL (6.4-8.2)
[2021-01-18 16:20] LABS: TRICYCLIC ANTIDEPRESS URINE NEGATIVE
[2021-01-18 16:42] VITALS: BP 110/72; PULSE 84
== END 2021-01-18 16:42 | disposition home or self-care (01) ==
LOC: COL.ER 15:30
PROVIDERS: Nurse Practitioner Primary Care
DX: R53.81 Other malaise (principal); R10.13 Epigastric pain; F41.9 Anxiety disorder, unspecified; K21.9 Gastro-esophageal reflux disease without esophagitis; F17.210 Nicotine dependence, cigarettes, uncomplicated; Z88.8 Allergy status to other drugs, medicaments and biological substances; Z32.02 Encounter for pregnancy test, result negative; Z79.899 Other long term (current) drug therapy

== ENCOUNTER 2021-03-15 09:00 | Emergency (ER) | payer MEDICAID ==
[~2021-03-15] VITALS: Ht 162.6 cm; Wt 72.7 kg
[2021-03-15 09:14] VITALS: TEMP 98.2
[2021-03-15 09:38] LABS: COLLECTION METHOD CLEAN CATCH
[2021-03-15 09:43] LABS: MUCOUS Present /lpf; PH 5 (5-8); URINE APPEARANCE Hazy; URINE BACTERIA None Seen /hpf; URINE BILIRUBIN Negative (NEGATIVE); URINE BLOOD Negative (NEGATIVE); URINE COLOR Yellow; URINE GLUCOSE Negative (NEGATIVE); URINE KETONE Negative (NEGATIVE); URINE LEUKOCYTE ESTERASE Negative (NEGATIVE); URINE NITRATE Negative (NEGATIVE); URINE PROTEIN(semi-quant) Negative (NEGATIVE); URINE RBC 0-2 /hpf; URINE UROBILINOGEN Negative (NEGATIVE)
[2021-03-15 09:51] LABS: BASO # 0.1 (0.0-0.2); BASO % 1.5 % (0.0-2.0); EOS # 0.1 (0.0-0.7); EOS % 2.5 % (0-4.0); GRAN # 3.5 (1.4-6.5); GRAN % 63.3 % (42.2-75.2); HEMATOCRIT 39.6 % (37.0-47.0); HEMOGLOBIN 13.3 g/dl (12.5-16.0); LYMPH # 1.4 (1.2-3.4); LYMPH % 25.6 % (20.0-51.0); MEAN CELL VOLUME 90 fl (80.0-100.0); MEAN CORPUSCULAR HEMOGLOBIN 30 pg (27.0-31.0); MEAN CORPUSCULAR HGB CONC 34 g/dl (33.0-37.0); MEAN PLATELET VOLUME 8.8 fl (7.4-10.4); MONO # 0.4 (0.1-0.6); MONO % 6.9 % (1.7-9.3); PLATELET COUNT 347 K/mm3 (130-400); RED BLOOD COUNT 4.38 M/mm3 (4.10-5.30); REDCELL DISTRIBUTION WIDTH-CV 12.1 % (11.5-14.5)
[2021-03-15 10:01] LABS: ALBUMIN 4.1 gm/dL (3.5-5.0); BILIRUBIN,TOTAL 0.3 mg/dL (0.0-1.0); CALCIUM 9.4 mg/dL (8.4-10.2); CREATININE, serum 0.81 (0.52-1.25); POTASSIUM 4.2 mmol/L (3.4-5.0); TOTAL PROTEIN 7.4 gm/dL (6.4-8.2)
[2021-03-15] MEDS ORDERED: ZOFRAN ODT4 MG PO (11:04)
[2021-03-15] MEDS ORDERED: PEPCID 20MG TAB20 MG PO (11:04)
[2021-03-15] MEDS ORDERED: IBU800 M1 PO (11:04)
[2021-03-15 11:20] VITALS: BP 113/75; PULSE 72
== END 2021-03-15 11:20 | disposition home or self-care (01) ==
LOC: COL.ER 09:00
PROVIDERS: Emergency Medicine
DX: R53.81 Other malaise (principal); R10.9 Unspecified abdominal pain; F41.9 Anxiety disorder, unspecified; F43.10 Post-traumatic stress disorder, unspecified; F17.290 Nicotine dependence, other tobacco product, uncomplicated; Z90.49 Acquired absence of other specified parts of digestive tract; Z32.02 Encounter for pregnancy test, result negative; Z79.899 Other long term (current) drug therapy

== ENCOUNTER 2021-05-16 11:37 | Emergency (ER) | payer MEDICAID ==
[~2021-05-16] VITALS: Ht 160 cm; Wt 72.7 kg
[~2021-05-16 11:37] MED LIST changes: +IBU800 M1 PO; +PEPCID 20MG TAB20 MG PO
[2021-05-16 12:21] VITALS: BP 109/65; TEMP 98.3
[2021-05-16] MEDS ORDERED: NORFLEX 10100 MG/TAB PO (13:31)
[2021-05-16 14:02] VITALS: PULSE 90
== END 2021-05-16 14:55 | disposition home or self-care (01) ==
LOC: COL.ER 11:37
DX: M25.551 Pain in right hip (principal); G89.29 Other chronic pain; M54.9 Dorsalgia, unspecified; M25.569 Pain in unspecified knee; F17.210 Nicotine dependence, cigarettes, uncomplicated; K21.9 Gastro-esophageal reflux disease without esophagitis; F41.9 Anxiety disorder, unspecified; Z79.899 Other long term (current) drug therapy; Z79.891 Long term (current) use of opiate analgesic
CPT/HCPCS: J1885; J2360

== ENCOUNTER 2021-06-26 10:59 | Emergency (ER) | payer MEDICAID ==
[~2021-06-26] VITALS: Ht 162.6 cm; Wt 75.5 kg
[2021-06-26] MEDS ORDERED: ATIVAN 0.50.5 MG/TAB PO (11:40)
[2021-06-26 12:44] LABS: COLLECTION METHOD CLEAN CATCH
[2021-06-26 12:54] LABS: BASO # 0.1 K/mm3 (0.0-0.2); BASO % 1.1 % (0.0-2.0); EOS # 0.1 K/mm3 (0.0-0.7); EOS % 2.2 % (0-4.0); GRAN # 3.6 K/mm3 (1.4-6.5); GRAN % 65.2 % (42.2-75.2); HEMATOCRIT 42.5 % (37.0-47.0); HEMOGLOBIN 13.9 g/dl (12.5-16.0); LYMPH # 1.4 K/mm3 (1.2-3.4); LYMPH % 24.7 % (20.0-51.0); MEAN CELL VOLUME 95 fl (80.0-100.0); MEAN CORPUSCULAR HEMOGLOBIN 31 pg (27.0-31.0); MEAN CORPUSCULAR HGB CONC 33 g/dl (33.0-37.0); MONO # 0.4 K/mm3 (0.1-0.6); MONO % 6.4 % (1.7-9.3); PLATELET COUNT 332 K/mm3 (130-400); RED BLOOD COUNT 4.47 M/mm3 (4.10-5.30); REDCELL DISTRIBUTION WIDTH-CV 12.3 % (11.5-14.5)
[2021-06-26 13:14] LABS: AMORPHOUS CRYSTAL Present /uL; MUCOUS Present /lpf; PH 7 (5-8); URINE APPEARANCE Cloudy; URINE BACTERIA Rare /hpf; URINE BILIRUBIN Negative (NEGATIVE); URINE BLOOD Negative (NEGATIVE); URINE COLOR Yellow; URINE GLUCOSE Negative (NEGATIVE); URINE KETONE Negative (NEGATIVE); URINE LEUKOCYTE ESTERASE Negative (NEGATIVE); URINE NITRATE Negative (NEGATIVE); URINE PROTEIN(semi-quant) Negative (NEGATIVE); URINE RBC 0-2 /hpf; URINE UROBILINOGEN Negative (NEGATIVE)
[2021-06-26 13:18] LABS: TRICYCLIC ANTIDEPRESS URINE NEGATIVE
[2021-06-26 13:21] LABS: ALANINE AMINOTRANSFERASE 21 U/L (0-55); ALKALINE PHOSPHATASE 45 U/L (0-750); ANION GAP 9 mmol/L (7-16); AST,SGOT 20 U/L (5-34); BILIRUBIN,TOTAL 0.4 mg/dL (0.2-1.2); BLOOD UREA NITROGEN 12 mg/dL (7-19); C-REACTIVE PROTEIN < 0.02 mg/dL (0.00-0.50); CALCIUM 9.4 mg/dL (8.4-10.2); CARBON DIOXIDE 23 mmol/L (22-29); CHLORIDE 108 mmol/L (98-107); CREATININE, serum 0.86 mg/dL (0.57-1.11); GLUCOSE 93 mg/dL (70-99); LIPASE 58 U/L (8-78); POTASSIUM 3.9 mmol/L (3.5-4.5); SODIUM 140 mmol/L (136-145); TOTAL PROTEIN 7.5 gm/dL (6.2-8.1)
[2021-06-26 14:45] VITALS: BP 128/68; PULSE 74; TEMP 98.6
== END 2021-06-26 14:47 | disposition home or self-care (01) ==
LOC: COL.ER 10:59
PROVIDERS: Nurse Practitioner
DX: R42 Dizziness and giddiness (principal); R10.11 Right upper quadrant pain; R10.12 Left upper quadrant pain; F41.9 Anxiety disorder, unspecified; Z90.49 Acquired absence of other specified parts of digestive tract; Z79.899 Other long term (current) drug therapy
CPT/HCPCS: J1630; J2060; J7030

== ENCOUNTER 2021-09-17 02:52 | Emergency (ER) | payer MEDICAID ==
[~2021-09-17] VITALS: Ht 162.6 cm; Wt 72.7 kg
[2021-09-17 03:19] LABS: BASO # 0.1 K/mm3 (0.0-0.2); BASO % 0.6 % (0.0-2.0); EOS # 0.3 K/mm3 (0.0-0.7); EOS % 3.5 % (0.0-4.0); GRAN # 4.2 K/mm3 (1.4-6.5); GRAN % 54.2 % (42.2-75.2); HEMATOCRIT 38.7 % (37.0-47.0); LYMPH # 2.7 K/mm3 (1.2-3.4); LYMPH % 34.8 % (20.0-51.0); MEAN CELL VOLUME 94 fl (80.0-100.0); MEAN CORPUSCULAR HEMOGLOBIN 32 pg (27-31); MEAN CORPUSCULAR HGB CONC 34 g/dl (33.0-37.0); MONO # 0.5 K/mm3 (0.1-0.6); MONO % 6.6 % (1.7-9.3); PLATELET COUNT 327 K/mm3 (130-400); REDCELL DISTRIBUTION WIDTH-CV 12.5 % (11.5-14.5)
[2021-09-17 03:35] LABS: ALANINE AMINOTRANSFERASE 15 U/L (0-55); ALBUMIN 3.9 gm/dL (3.5-5.0); ALKALINE PHOSPHATASE 38 U/L (40-150); ANION GAP 12 mmol/L (7-16); AST,SGOT 25 U/L (5-34); BILIRUBIN,TOTAL 0.2 mg/dL (0.2-1.2); BLOOD UREA NITROGEN 21 mg/dL (7-19); CALCIUM 8.9 mg/dL (8.4-10.2); CARBON DIOXIDE 20 mmol/L (22-29); CHLORIDE 107 mmol/L (98-107); CREATININE, serum 0.92 mg/dL (0.57-1.11); GLUCOSE 90 mg/dL (70-99); POTASSIUM 3.9 mmol/L (3.5-4.5); SODIUM 139 mmol/L (136-145); TOTAL PROTEIN 6.8 gm/dL (6.2-8.1)
[2021-09-17 03:57] LABS: TROPONIN-I < 0.010 ng/mL (0.00-0.033)
[2021-09-17] MEDS ORDERED: FLEXERIL5 MG PO (04:35)
[2021-09-17 04:55] VITALS: BP 121/87; PULSE 62; TEMP 98.4
== END 2021-09-17 04:55 | disposition home or self-care (01) ==
LOC: COL.ER 02:52
PROVIDERS: Personal Emergency Response Attendant
DX: R07.9 Chest pain, unspecified (principal); M25.572 Pain in left ankle and joints of left foot; R06.02 Shortness of breath; F41.9 Anxiety disorder, unspecified; Z88.8 Allergy status to other drugs, medicaments and biological substances; Z79.899 Other long term (current) drug therapy; W22.8XXA Striking against or struck by other objects, initial encounter
CPT/HCPCS: J2060; J2270; J2405; J7030

== ENCOUNTER 2021-09-22 12:31 | Emergency (ER) | payer MEDICAID ==
[~2021-09-22] VITALS: Ht 162.6 cm; Wt 72.7 kg
[~2021-09-22 12:31] MED LIST changes: +FLEXERIL5 MG PO
[2021-09-22 12:53] VITALS: TEMP 98.3
[2021-09-22 13:45] VITALS: BP 112/71; PULSE 90
== END 2021-09-22 13:45 | disposition home or self-care (01) ==
LOC: COL.ER 12:31
DX: M79.10 Myalgia, unspecified site (principal); F41.9 Anxiety disorder, unspecified; G89.29 Other chronic pain; Z88.8 Allergy status to other drugs, medicaments and biological substances; Z79.899 Other long term (current) drug therapy

== ENCOUNTER 2021-10-03 10:59 | Emergency (ER) | payer MEDICAID ==
[2021-10-03 11:36] VITALS: TEMP 98.3
[2021-10-03] MEDS ORDERED: KLONOPIN 0.5MG0.5 MG PO (12:46)
[2021-10-03 14:19] LABS: BASO # 0.1 K/mm3 (0.0-0.2); BASO % 0.7 % (0.0-2.0); EOS # 0.4 K/mm3 (0.0-0.7); EOS % 5.1 % (0.0-4.0); GRAN # 4.9 K/mm3 (1.4-6.5); GRAN % 67.6 % (42.2-75.2); HEMATOCRIT 41.2 % (37.0-47.0); HEMOGLOBIN 14.1 g/dl (12.5-16.0); LYMPH # 1.5 K/mm3 (1.2-3.4); LYMPH % 20.7 % (20.0-51.0); MEAN CELL VOLUME 91 fl (80.0-100.0); MEAN CORPUSCULAR HEMOGLOBIN 31 pg (27-31); MEAN CORPUSCULAR HGB CONC 34 g/dl (33.0-37.0); MEAN PLATELET VOLUME 8.8 fl (7.4-10.4); MONO # 0.4 K/mm3 (0.1-0.6); MONO % 5.8 % (1.7-9.3); PLATELET COUNT 333 K/mm3 (130-400); RED BLOOD COUNT 4.55 M/mm3 (4.10-5.30); REDCELL DISTRIBUTION WIDTH-CV 12.4 % (11.5-14.5)
[2021-10-03 14:30] LABS: BILIRUBIN,TOTAL 0.3 mg/dL (0.2-1.2); CREATININE, serum 0.98 mg/dL (0.57-1.11); POTASSIUM 4.5 mmol/L (3.5-4.5); TOTAL PROTEIN 7.2 gm/dL (6.2-8.1)
[2021-10-03] MEDS ORDERED: FLEXERIL 1010 MG/TAB PO (14:54)
[2021-10-03 15:08] VITALS: BP 100/66; PULSE 73
== END 2021-10-03 15:10 | disposition home or self-care (01) ==
LOC: COL.ER 10:59
PROVIDERS: Nurse Practitioner
DX: M62.838 Other muscle spasm (principal); F41.9 Anxiety disorder, unspecified; Z20.822 Contact with and (suspected) exposure to COVID-19; Z79.899 Other long term (current) drug therapy

== ENCOUNTER 2022-01-26 15:03 | Emergency (ER) | payer MEDICAID ==
[~2022-01-26] VITALS: Ht 162.6 cm; Wt 77.3 kg
[2022-01-26 15:17] VITALS: TEMP 97.9
[2022-01-26 16:04] LABS: BASO # 0.1 K/mm3 (0.0-0.2); BASO % 0.8 % (0.0-2.0); EOS # 0.3 K/mm3 (0.0-0.7); EOS % 4.5 % (0.0-4.0); GRAN # 3.4 K/mm3 (1.4-6.5); GRAN % 57.4 % (42.2-75.2); HEMATOCRIT 41.7 % (37.0-47.0); HEMOGLOBIN 14.1 g/dl (12.5-16.0); LYMPH # 1.7 K/mm3 (1.2-3.4); LYMPH % 28.5 % (20.0-51.0); MEAN CELL VOLUME 93 fl (80.0-100.0); MEAN CORPUSCULAR HEMOGLOBIN 31 pg (27-31); MEAN CORPUSCULAR HGB CONC 34 g/dl (33.0-37.0); MEAN PLATELET VOLUME 8.7 fl (7.4-10.4); MONO # 0.5 K/mm3 (0.1-0.6); MONO % 8.5 % (1.7-9.3); PLATELET COUNT 337 K/mm3 (130-400); RED BLOOD COUNT 4.49 M/mm3 (4.10-5.30); REDCELL DISTRIBUTION WIDTH-CV 12.9 % (11.5-14.5)
[2022-01-26 16:22] LABS: ALBUMIN 3.9 gm/dL (3.5-5.0); BILIRUBIN,TOTAL 0.3 mg/dL (0.2-1.2); CALCIUM 8.6 mg/dL (8.4-10.2); CREATININE, serum 0.86 mg/dL (0.57-1.11); POTASSIUM 4.1 mmol/L (3.5-4.5); TOTAL PROTEIN 7.2 gm/dL (6.2-8.1)
[2022-01-26] MEDS ORDERED: ZOFRAN ODT4 MG PO (18:18)
[2022-01-26] MEDS ORDERED: ULTRAM 50MG TAB50 MG PO (18:18)
[2022-01-26 18:29] VITALS: BP 108/71; PULSE 56
== END 2022-01-26 18:29 | disposition home or self-care (01) ==
LOC: COL.ER 15:03
PROVIDERS: Personal Emergency Response Attendant
DX: M62.838 Other muscle spasm (principal); R53.1 Weakness; Z28.310 Unvaccinated for COVID-19
CPT/HCPCS: J2060; J2270; J2405; J7030

== ENCOUNTER 2022-02-17 18:21 | Emergency (ER) | payer MEDICAID ==
[2022-02-17 18:47] VITALS: TEMP 98.5
[2022-02-17 19:29] LABS: BASO # 0.1 K/mm3 (0.0-0.2); BASO % 0.8 % (0.0-2.0); EOS # 0.6 K/mm3 (0.0-0.7); GRAN # 4.3 K/mm3 (1.4-6.5); GRAN % 59.1 % (42.2-75.2); HEMOGLOBIN 13.3 g/dl (12.5-16.0); LYMPH # 1.8 K/mm3 (1.2-3.4); LYMPH % 24.1 % (20.0-51.0); MEAN CELL VOLUME 94 fl (80.0-100.0); MEAN CORPUSCULAR HEMOGLOBIN 31 pg (27-31); MEAN CORPUSCULAR HGB CONC 33 g/dl (33.0-37.0); MEAN PLATELET VOLUME 8.8 fl (7.4-10.4); MONO # 0.6 K/mm3 (0.1-0.6); MONO % 7.7 % (1.7-9.3); PLATELET COUNT 343 K/mm3 (130-400); RED BLOOD COUNT 4.24 M/mm3 (4.10-5.30); REDCELL DISTRIBUTION WIDTH-CV 12.3 % (11.5-14.5)
[2022-02-17 19:38] LABS: ALANINE AMINOTRANSFERASE 85 U/L (0-55); ALBUMIN 3.5 gm/dL (3.5-5.0); ALKALINE PHOSPHATASE 47 U/L (40-150); ANION GAP 12 mmol/L (7-16); AST,SGOT 55 U/L (5-34); BLOOD UREA NITROGEN 16 mg/dL (7-19); CALCIUM 8.9 mg/dL (8.4-10.2); CARBON DIOXIDE 21 mmol/L (22-29); CHLORIDE 108 mmol/L (98-107); CREATININE, serum 0.89 mg/dL (0.57-1.11); GLUCOSE 87 mg/dL (70-99); POTASSIUM 4.2 mmol/L (3.5-4.5); SODIUM 141 mmol/L (136-145)
[2022-02-17 19:44] LABS: TRICYCLIC ANTIDEPRESS URINE NEGATIVE
[2022-02-17 19:58] LABS: TSH w REFLEX 0.577 uIU/mL (0.350-4.940)
[2022-02-17 20:06] LABS: TROPONIN-I < 0.010 ng/mL (0.00-0.033)
[2022-02-17] MEDS ORDERED: ZOFRAN ODT4 MG PO (20:12)
[2022-02-17 20:17] LABS: BILIRUBIN,TOTAL 0.3 mg/dL (0.2-1.2)
[2022-02-17 20:32] VITALS: BP 139/89; PULSE 88
== END 2022-02-17 20:35 | disposition home or self-care (01) ==
LOC: COL.ER 18:21
PROVIDERS: Emergency Medicine
DX: R05.9 Cough, unspecified (principal)
CPT/HCPCS: J1885

== ENCOUNTER 2022-05-11 21:52 | Emergency (ER) | payer MEDICAID ==
[~2022-05-11] VITALS: Ht 162.6 cm; Wt 77.3 kg
[2022-05-11 21:55] VITALS: TEMP 98.7
[2022-05-11 22:06] LABS: BASO % 0.4 % (0.0-2.0); EOS # 0.2 K/mm3 (0.0-0.7); EOS % 3.4 % (0.0-4.0); GRAN % 58.7 % (42.2-75.2); HEMATOCRIT 40.7 % (37.0-47.0); HEMOGLOBIN 13.5 g/dl (12.5-16.0); LYMPH # 2.1 K/mm3 (1.2-3.4); LYMPH % 30.2 % (20.0-51.0); MEAN CELL VOLUME 93 fl (80.0-100.0); MEAN CORPUSCULAR HEMOGLOBIN 31 pg (27-31); MEAN CORPUSCULAR HGB CONC 33 g/dl (33.0-37.0); MEAN PLATELET VOLUME 8.9 fl (7.4-10.4); MONO # 0.5 K/mm3 (0.1-0.6); MONO % 7.2 % (1.7-9.3); PLATELET COUNT 299 K/mm3 (130-400); RED BLOOD COUNT 4.37 M/mm3 (4.10-5.30); REDCELL DISTRIBUTION WIDTH-CV 12.1 % (11.5-14.5)
[2022-05-11 22:25] LABS: ALANINE AMINOTRANSFERASE 19 U/L (0-55); ALBUMIN 3.6 gm/dL (3.5-5.0); ALCOHOL(ethanol),MEDICAL < 10 mg/dL (0-10); ALKALINE PHOSPHATASE 40 U/L (40-150); ANION GAP 10 mmol/L (7-16); AST,SGOT 21 U/L (5-34); BILIRUBIN,TOTAL 0.2 mg/dL (0.2-1.2); BLOOD UREA NITROGEN 15 mg/dL (7-19); CALCIUM 9.3 mg/dL (8.4-10.2); CARBON DIOXIDE 22 mmol/L (22-29); CHLORIDE 109 mmol/L (98-107); CREATININE, serum 1.09 mg/dL (0.57-1.11); GLUCOSE 107 mg/dL (70-99); POTASSIUM 4.2 mmol/L (3.5-4.5); SODIUM 141 mmol/L (136-145); TOTAL PROTEIN 6.7 gm/dL (6.2-8.1)
[2022-05-11] MEDS ORDERED: CEPHALEXIN500 M1 PO (23:21)
[2022-05-12 01:01] VITALS: BP 121/82; PULSE 84
== END 2022-05-12 01:03 | disposition home or self-care (01) ==
LOC: COL.ER 21:52
PROVIDERS: Family Medicine
DX: S00.83XA Contusion of other part of head, initial encounter (principal); S10.93XA Contusion of unspecified part of neck, initial encounter; S00.412A Abrasion of left ear, initial encounter; Y04.0XXA Assault by unarmed brawl or fight, initial encounter
CPT/HCPCS: J3010; J7120; Q9967

== ENCOUNTER 2022-10-09 20:33 | Emergency (ER) | payer MEDICAID ==
[~2022-10-09] VITALS: Ht 162.6 cm; Wt 77.3 kg
[~2022-10-09 20:33] MED LIST changes: +CEPHALEXIN500 M1 PO; +MOBIC 7.5MG7.5 MG PO
[2022-10-09 20:39] VITALS: BP 125/89; TEMP 98.2
[2022-10-09 21:21] LABS: BASO # 0.1 K/mm3 (0.0-0.2); BASO % 0.6 % (0.0-2.0); EOS # 0.1 K/mm3 (0.0-0.7); EOS % 1.4 % (0.0-4.0); GRAN % 64.9 % (42.2-75.2); HEMATOCRIT 38.2 % (37.0-47.0); HEMOGLOBIN 12.9 g/dl (12.5-16.0); LYMPH # 2.4 K/mm3 (1.2-3.4); LYMPH % 26.1 % (20.0-51.0); MEAN CELL VOLUME 92 fl (80.0-100.0); MEAN CORPUSCULAR HEMOGLOBIN 31 pg (27-31); MEAN CORPUSCULAR HGB CONC 34 g/dl (33.0-37.0); MEAN PLATELET VOLUME 8.7 fl (7.4-10.4); MONO # 0.6 K/mm3 (0.1-0.6); MONO % 6.9 % (1.7-9.3); PLATELET COUNT 347 K/mm3 (130-400); RED BLOOD COUNT 4.15 M/mm3 (4.10-5.30); REDCELL DISTRIBUTION WIDTH-CV 12.5 % (11.5-14.5)
[2022-10-09 21:36] LABS: MONOSCREEN NEGATIVE
[2022-10-09 21:39] LABS: ALBUMIN 3.5 gm/dL (3.5-5.0); BILIRUBIN,TOTAL 0.3 mg/dL (0.2-1.2); CALCIUM 8.8 mg/dL (8.4-10.2); CREATININE, serum 0.81 mg/dL (0.57-1.11); POTASSIUM 3.7 mmol/L (3.5-4.5); TOTAL PROTEIN 6.6 gm/dL (6.2-8.1)
[2022-10-09 21:45] LABS: TROPONIN-I 0.01 ng/mL (0.00-0.033)
[2022-10-09] MEDS ORDERED: MOBIC 7.5MG7.5 MG PO (22:12)
[2022-10-09] MEDS ORDERED: FLEXERIL5 MG PO (22:12)
[2022-10-09 22:25] VITALS: PULSE 90
== END 2022-10-09 22:25 | disposition home or self-care (01) ==
LOC: COL.ER 20:33
PROVIDERS: Personal Emergency Response Attendant
DX: M62.838 Other muscle spasm (principal); Z28.310 Unvaccinated for COVID-19

== ENCOUNTER 2022-11-02 04:27 | Emergency (ER) | payer MEDICAID ==
[~2022-11-02] VITALS: Ht 162.6 cm; Wt 72.7 kg
[2022-11-02 04:37] VITALS: BP 152/90; TEMP 98.2
[2022-11-02] MEDS ORDERED: ZANAFLEX2 MG PO (05:15)
[2022-11-02 05:45] VITALS: PULSE 92
[2022-11-04] MEDS ORDERED: ZANAFLEX 4MG TAB4 MG PO (00:16)
== END 2022-11-02 05:45 | disposition home or self-care (01) ==
LOC: COL.ER 04:27
DX: M25.511 Pain in right shoulder (principal); Z28.310 Unvaccinated for COVID-19
CPT/HCPCS: J1885; J2360

== ENCOUNTER 2022-12-03 05:10 | Emergency (ER) | payer MEDICAID ==
[~2022-12-03] VITALS: Ht 162.6 cm; Wt 77.3 kg
[~2022-12-03 05:10] MED LIST changes: +ZANAFLEX 4MG TAB4 MG PO; +ZANAFLEX2 MG PO
[2022-12-03 05:11] VITALS: TEMP 97.7
[2022-12-03 05:46] LABS: BASO # 0.1 K/mm3 (0.0-0.2); BASO % 0.8 % (0.0-2.0); EOS # 0.3 K/mm3 (0.0-0.7); EOS % 3.5 % (0.0-4.0); GRAN # 5.3 K/mm3 (1.4-6.5); GRAN % 62.3 % (42.2-75.2); HEMATOCRIT 42.5 % (37.0-47.0); HEMOGLOBIN 14.9 g/dl (12.5-16.0); LYMPH # 2.2 K/mm3 (1.2-3.4); LYMPH % 26.2 % (20.0-51.0); MEAN CELL VOLUME 90 fl (80.0-100.0); MEAN CORPUSCULAR HEMOGLOBIN 32 pg (27-31); MEAN CORPUSCULAR HGB CONC 35 g/dl (33.0-37.0); MEAN PLATELET VOLUME 8.8 fl (7.4-10.4); MONO # 0.6 K/mm3 (0.1-0.6); MONO % 6.8 % (1.7-9.3); PLATELET COUNT 359 K/mm3 (130-400); RED BLOOD COUNT 4.71 M/mm3 (4.10-5.30); REDCELL DISTRIBUTION WIDTH-CV 12.2 % (11.5-14.5)
[2022-12-03 06:02] LABS: ALBUMIN 3.9 gm/dL (3.5-5.0); BILIRUBIN,TOTAL 0.3 mg/dL (0.2-1.2); C-REACTIVE PROTEIN 0.02 mg/dL (0.00-0.50); CALCIUM 9.1 mg/dL (8.4-10.2); CREATININE, serum 0.87 mg/dL (0.57-1.11); POTASSIUM 3.4 mmol/L (3.5-4.5); TOTAL PROTEIN 7.4 gm/dL (6.2-8.1)
[2022-12-03] MEDS ORDERED: MOBIC 7.5MG7.5 MG PO (06:41)
[2022-12-03] MEDS ORDERED: FLEXERIL 1010 MG/TAB PO (06:41)
[2022-12-03 06:54] VITALS: BP 134/92; PULSE 67
== END 2022-12-03 06:59 | disposition home or self-care (01) ==
LOC: COL.ER 05:10
PROVIDERS: Emergency Medicine
DX: M62.838 Other muscle spasm (principal); F41.9 Anxiety disorder, unspecified; E87.6 Hypokalemia; R74.8 Abnormal levels of other serum enzymes; F17.200 Nicotine dependence, unspecified, uncomplicated; Z87.442 Personal history of urinary calculi
CPT/HCPCS: J1885; J2060; J2405; J7030

== ENCOUNTER 2023-05-29 07:18 | Emergency (ER) | payer MEDICAID ==
[~2023-05-29] VITALS: Ht 162.6 cm; Wt 84.9 kg
[~2023-05-29 07:18] MED LIST changes: +MOBIC15 MG PO; +NEURONTIN100 MG/CAP PO
[2023-05-29 07:24] VITALS: TEMP 98.5
[2023-05-29 07:57] LABS: BASO # 0.1 K/mm3 (0.0-0.2); BASO % 0.6 % (0.0-2.0); EOS % 0.4 % (0.0-4.0); GRAN # 8.2 K/mm3 (1.4-6.5); GRAN % 75.8 % (42.2-75.2); HEMATOCRIT 43.1 % (37.0-47.0); HEMOGLOBIN 14.4 g/dl (12.5-16.0); LYMPH # 1.7 K/mm3 (1.2-3.4); LYMPH % 15.7 % (20.0-51.0); MEAN CELL VOLUME 91 fl (80.0-100.0); MEAN CORPUSCULAR HEMOGLOBIN 30 pg (27-31); MEAN CORPUSCULAR HGB CONC 33 g/dl (33.0-37.0); MEAN PLATELET VOLUME 8.7 fl (7.4-10.4); MONO # 0.8 K/mm3 (0.1-0.6); MONO % 7.2 % (1.7-9.3); PLATELET COUNT 379 K/mm3 (130-400); RED BLOOD COUNT 4.73 M/mm3 (4.10-5.30)
[2023-05-29 08:25] LABS: ALANINE AMINOTRANSFERASE 20 U/L (0-55); ALBUMIN 4.3 gm/dL (3.5-5.0); ALKALINE PHOSPHATASE 54 U/L (40-150); ANION GAP 12 mmol/L (7-16); AST,SGOT 26 U/L (5-34); BILIRUBIN,TOTAL 0.6 mg/dL (0.2-1.2); BLOOD UREA NITROGEN 16 mg/dL (7-19); CALCIUM 10.1 mg/dL (8.4-10.2); CARBON DIOXIDE 23 mmol/L (22-29); CHLORIDE 106 mmol/L (98-107); CREATININE, serum 1.09 mg/dL (0.57-1.11); GLUCOSE 85 mg/dL (70-99); SODIUM 141 mmol/L (136-145); TOTAL PROTEIN 8.1 gm/dL (6.2-8.1)
[2023-05-29 08:26] LABS: ACETAMINOPHEN < 1.0 ug/mL (10-30); SALICYLATE < 5.0 mg/dL (15.0-30.0)
[2023-05-29 08:31] LABS: TROPONIN-I < 0.010 ng/mL (0.00-0.033)
[2023-05-29 09:49] LABS: COLLECTION METHOD CLEAN CATCH
[2023-05-29] MEDS ORDERED: MACROBID 1100 MG/CAP PO (10:03)
[2023-05-29 10:10] VITALS: BP 138/96; PULSE 91
[2023-05-29 10:10] LABS: TRICYCLIC ANTIDEPRESS URINE POSITIVE
[2023-05-29 10:12] LABS: MUCOUS Present (NOT PRESENT); PH 5.5 (5.0-8.5); URINE APPEARANCE Clear (CLEAR/HAZY); URINE BACTERIA Rare /hpf (NONE SEEN); URINE BLOOD 1+ (NEGATIVE); URINE COLOR Yellow (YELLOW); URINE GLUCOSE Negative (NEGATIVE); URINE KETONE TRACE (NEGATIVE); URINE NITRATE Negative (NEGATIVE); URINE PROTEIN(semi-quant) 1+ (NEGATIVE); URINE RBC 0-2 /hpf (0-2); URINE UROBILINOGEN 0.2 E.U/dL (0.2-1.0)
== END 2023-05-29 10:10 | disposition home or self-care (01) ==
LOC: COL.ER 07:18
PROVIDERS: Emergency Medicine
DX: T39.311A Poisoning by propionic acid derivatives, accidental (unintentional), initial encounter (principal); R51.9 Headache, unspecified; R00.0 Tachycardia, unspecified; Z87.891 Personal history of nicotine dependence; Z28.310 Unvaccinated for COVID-19
CPT/HCPCS: J3360; J7030

== ENCOUNTER 2023-07-07 01:12 | Emergency (ER) | payer MEDICAID ==
[~2023-07-07] VITALS: Ht 162.6 cm; Wt 81.8 kg
[2023-07-07 01:12] VITALS: BP 145/87; TEMP 97.8
[~2023-07-07 01:12] MED LIST changes: +MACROBID 1100 MG/CAP PO
[2023-07-07 01:46] VITALS: PULSE 80
== END 2023-07-07 01:47 | disposition home or self-care (01) ==
LOC: COL.ER 01:12
DX: M54.50 Low back pain, unspecified (principal); G89.29 Other chronic pain; M25.532 Pain in left wrist; F17.210 Nicotine dependence, cigarettes, uncomplicated
CPT/HCPCS: J1885

== ENCOUNTER 2024-04-09 04:53 | Emergency (ER) | payer MEDICAID ==
[~2024-04-09] VITALS: Ht 162.6 cm; Wt 90.9 kg
[~2024-04-09 04:53] MED LIST changes: +SKELAXIN 800MG800 MG PO
[2024-04-09 04:59] VITALS: BP 212/122; PULSE 102; TEMP 98.2
[2024-04-09] MEDS ORDERED: NS 1,000 ML IV ONE ×2 (05:15)
[2024-04-09] MEDS ORDERED: Pantoprazole 40 MG in NS 10 ML IV ONE (05:15)
[2024-04-09 05:26] LABS: BASO # 0.1 K/mm3 (0.0-0.2); BASO % 0.6 % (0.0-2.0); EOS # 0.1 K/mm3 (0.0-0.7); EOS % 1.2 % (0.0-4.0); GRAN # 9.4 K/mm3 (1.4-6.5); GRAN % 77.8 % (42.2-75.2); HEMATOCRIT 44.2 % (37.0-47.0); HEMOGLOBIN 14.8 g/dl (12.5-16.0); LYMPH # 1.8 K/mm3 (1.2-3.4); LYMPH % 14.6 % (20.0-51.0); MEAN CELL VOLUME 92 fl (80.0-100.0); MEAN CORPUSCULAR HEMOGLOBIN 31 pg (27-31); MEAN CORPUSCULAR HGB CONC 34 g/dl (33.0-37.0); MEAN PLATELET VOLUME 9.3 fl (7.4-10.4); MONO # 0.7 K/mm3 (0.1-0.6); MONO % 5.4 % (1.7-9.3); PLATELET COUNT 353 K/mm3 (130-400); RED BLOOD COUNT 4.83 M/mm3 (4.10-5.30); REDCELL DISTRIBUTION WIDTH-CV 12.4 % (11.5-14.5)
[2024-04-09 05:52] LABS: ALANINE AMINOTRANSFERASE 27 U/L (0-55); ALBUMIN 4.4 g/dL (3.5-5.0); ALKALINE PHOSPHATASE 55 U/L (40-150); ANION GAP 16 mmol/L (7-16); AST,SGOT 34 U/L (5-34); BILIRUBIN,TOTAL 0.2 mg/dL (0.2-1.2); BLOOD UREA NITROGEN 16 mg/dL (7-19); CALCIUM 9.1 mg/dL (8.4-10.2); CHLORIDE 106 mEq/L (98-107); CREATININE, serum 1.07 mg/dL (0.57-1.11); GLUCOSE 130 mg/dL (70-99); POTASSIUM 3.9 mEq/L (3.5-4.5); SODIUM 139 mEq/L (136-145); TOTAL PROTEIN 8.5 g/dl (6.2-8.1)
[2024-04-09 06:05] LABS: TROPONIN-I < 0.010 ng/mL (0.00-0.033)
== END 2024-04-09 06:04 | disposition left against medical advice (07) ==
LOC: COL.ER 04:53
PROVIDERS: Personal Emergency Response Attendant
DX: R53.81 Other malaise (principal); R52 Pain, unspecified
CPT/HCPCS: J1920; J2470; J7030

== ENCOUNTER 2024-04-23 03:09 | Emergency (ER) | payer MEDICAID ==
[~2024-04-23] VITALS: Ht 162.6 cm; Wt 90.9 kg
[2024-04-23 03:10] VITALS: BP 156/99; TEMP 98.2
[2024-04-23 04:05] VITALS: PULSE 91
== END 2024-04-23 04:06 | disposition home or self-care (01) ==
LOC: COL.ER 03:09
DX: G89.29 Other chronic pain (principal); F41.9 Anxiety disorder, unspecified